=== PATIENT | female | born 1965 | race Hispanic/Latino ===

== ENCOUNTER 2024-06-09 12:30 | Day surgery (SDC) | payer OTHER ==
[2024-06-06 14:25] LABS: Absolute Eosinophils 0.1 K/uL (0-0.5); Absolute Lymphocytes (CBC) 2.1 K/uL (0.7-4.9); Absolute Monocytes 0.5 K/uL (0.1-1.3); Absolute Neutrophil 2.7 K/uL (1.8-8.0); Basophils % 0.8 % (0-1.3); Eosinophils % 1.4 % (0-4.4); Hematocrit 38.6 % (36.0-45.0); Hemoglobin 12.9 g/dL (12.0-15.0); Lymphocytes % 39.2 % (15.3-44.8); MCH 29.9 pg (27.0-35.0); MCHC 33.5 g/dL (32.0-36.0); MCV 89.3 fL (80-100); MPV 8.7 fL (7.6-11.3); Monocytes % 8.7 % (3.3-12.3); Neutrophils % 49.9 % (41.7-73.7); Nucleated Red Blood Cells % 0.1 % (0-0); Platelets 199 thou/uL (152-406); RBC Red Blood Cell Count 4.33 M/uL (3.86-4.86); Red Cell Distribution Width 13.4 % (12.1-15.2)
[2024-06-06 14:37] LABS: Anion Gap 6.9 mEq/L (5.0-15.0); Potassium 3.9 mEq/L (3.5-5.1)
--- NOTE | 2024-06-09 10:24 | EKG ---
Test Date: 2024-06-06 Test Time: 14:01:55 Call Center Assistant: ANGELICA MEASUREMENT RESULTS: Intervals: Rate: 67 MT: 144 QRSD: 100 QT: 398 QTc: 420 [place]: P: 64 MT: 144 QRS: 49 T: 47 INTERPRETIVE STATEMENTS: Normal sinus rhythm Normal ECG No previous ECG available for comparison Electronically Signed On 06-09-24 10:21:02 CDT by Waqar Melissa
[2024-06-09] MEDS ORDERED: CEFAZOLIN SODIUM 2 GM/VIAL ONE (12:56)
[2024-06-09] MEDS ORDERED: Ringers Lactate 1,000 ML IV ONE (12:56)
[2024-06-09] MEDS ORDERED: LIDOCAINE HCL/EPINEPHRINE 20 ML MDV ONE (13:29)
[2024-06-09] MEDS ORDERED: dexAMETHasone 10 MG/ML VIAL ONE (13:30)
[2024-06-09] MEDS ORDERED: propofoL 200 MG/20 ML VIAL IV ONE (13:30)
[2024-06-09] MEDS ORDERED: LIDOCAINE 2% MPF 5 ML VIAL ONE (13:30)
[2024-06-09] MEDS ORDERED: ONDANSETRON 4 MG/2 ML VIAL ONE (13:30)
[2024-06-09] MEDS ORDERED: MIDAZOLAM HCL 2 MG/2 ML INJ ONE (13:30)
[2024-06-09] MEDS ORDERED: FENTANYL CITR 100 MCG/2 ML ONE (13:30)
[2024-06-09] MEDS ORDERED: KETOROLAC 30 MG/ML INJ ONE (13:30)
[2024-06-09] MEDS ORDERED: CEFAZOLIN SODIUM 2 GM/VIAL IVPB ONE (14:10)
[2024-06-09] MEDS ORDERED: NS 0.9% VIAL 20 ML ONE (14:20)
[2024-06-09] MEDS ORDERED: NS 0.9% VIAL 10 ML ONE (14:28)
[2024-06-09] MEDS ORDERED: Phenylephrine HCl 10 MG/ML 1 ML VIAL ONE (14:28)
[2024-06-09] MEDS ORDERED: LIDOCAINE 1% W/EPI 1:100,000 30 ML VIAL IJ ONE (14:32)
--- NOTE | 2024-06-09 15:02 | P.OP ---
Preoperative diagnosis: Multiple Back Cysts Postoperative diagnosis: Multiple Back Cysts Primary procedure: Excision of Multiple Back Cysts Anesthesia: GETA + Local Estimated blood loss: <5cc Specimen: Epidermal Inclusion Cysts x 3 Findings: (cm) 7x5x4 , 4x2, 2x2 into adipose Complications: None Transferred to: Recovery Room Condition: Good
[2024-06-09 15:54] VITALS: BP 122/58; TEMP 97.6; O2SAT 97
--- NOTE | 2024-06-10 02:12 | OP ---
Date of Procedure: 06/09/2024 Surgeon: Aston Miramontes MD, Preoperative Diagnosis: Multiple back cysts. Postoperative Diagnosis: Multiple back cysts. Procedure: Excision of multiple back cysts, #3 total. Anesthesia: General endotracheal plus local 1% lidocaine with epinephrine. Estimated Blood Loss: Less than 5 cc. Specimen: Epidermal inclusion cyst x3. Findings: Central back epidermal inclusion cyst was 7 cm x 5 cm x 4 cm and adipose. The second cyst was superior central back, which was 4 cm x 2 cm and adipose. The third was a scapular cyst, was 2 cm x 2 cm and adipose. Complications: None. Disposition: The patient was transferred to recovery room in good condition. Procedure In Detail: After informed consent was obtained, the patient was brought to the operating r oom, prepped and draped in the usual sterile fashion. After adequate anesthesia was achieved, I made an elliptical incision circumferentially around all 3 cysts as described. After appropriately anest hetizing the skin, dissection continued down circumferentially around to remove epidermal type inclus ion cyst material including abscess material as well, particularly the 7 cm x 5 cm x 4 cm cyst. The other 2 appeared clean at this point without evidence of abscess material, but epidermal inclusion ma terial was appreciated in the 4 cm and the 2 cm superior and right scapular cyst. After all material was removed, it was sent off for pathologic examination. The area was copiously irrigated. Hemosta sis was achieved with electrocautery. The 4 cm x 2 cm cyst was closed using interrupted 3-0 nylon nolasco tures. The 2 cm x 2 cm was also closed using interrupted sutures of 3-0 nylon fashion and the 5 cm x 4 cm was partially reapproximated using 3-0 nylon sutures and the wound was packed with Vashe-soaked Kerlix and a sterile dressing placed over top. The patient tolerated the procedure without incident or complication and transferred to PACU in good condition. All counts were correct at the end of e case. TK/MODL Voice ID: [id number] Report ID: [id number]
== END 2024-06-09 16:40 | disposition home or self-care (01) ==
LOC: PRE 12:30 → OR 16:40
PROVIDERS: ATTEND Surgery
PROC: 0JB70ZZ Excision of Back Subcutaneous Tissue and Fascia, Open Approach (ICD-10-PCS; principal; 2024-06-09 16:15)
DX: L72.0 Epidermal cyst (principal)
CPT/HCPCS: 93005; 87070; 85025; 80048; 36415; 87205 ×2; 87075; 11404; 11402; 11406; A4216 ×2; J2704; J2371; J2001; J2250; J3010; J1100; J2405; J7120; 87077; 87186